=== PATIENT | female | born 1945 | race Caucasian/White ===

== ENCOUNTER 2019-07-14 17:45 | Inpatient (IN) | payer OTHER ==
[~2019-07-14] VITALS: Ht 162.6 cm; Wt 77.1 kg
[2019-07-14 17:46] VITALS: BP 173/65
[2019-07-14 18:14] LABS: ABSOLUTE NEUTROPHILS 8.4 thou/uL (1.4-8.2); BASOPHILS 0.3 % (0.0-2.0); HEMATOCRIT 37.2 % (37.0-47.0); HEMOGLOBIN 12.5 gm/dL (12.0-15.0); LYMPHOCYTES 6.5 % (24.0-44.0); MCH 30.6 pg (26.0-34.0); MCHC 33.7 g/dL (28.0-37.0); MCV 90.9 fL (80.0-100.0); MONOCYTES 2.2 % (1.0-8.0); PLATELET COUNT 181 thou/uL (150-400); RBC 4.09 mil/uL (4.20-5.00); RDW 13.6 % (10.5-14.5); WBC 9.3 thou/uL (4.0-11.0)
[2019-07-14 18:20] LABS: ANION GAP 9 mmol/L (7-16); BUN 19 mg/dL (7-18); CALCIUM 10.1 mg/dL (8.5-10.1); CHLORIDE 97 mmol/L (98-107); CO2 30 mmol/L (21-32); CREATININE 1.2 mg/dL (0.6-1.0); GLUCOSE 315 mg/dL (74-106); POTASSIUM 3.3 mmol/L (3.5-5.1); SODIUM 136 mmol/L (136-145)
[2019-07-14 18:26] LABS: ALBUMIN 3.7 g/dL (3.4-5.0); DIRECT BILIRUBIN < 0.1 mg/dL (<0.1-0.3); SGOT 16 U/L (15-37); SGPT 11 U/L (30-65); TOTAL BILIRUBIN 0.3 mg/dL (<0.1-1.0); TOTAL PROTEIN 8.1 g/dL (6.4-8.2)
[2019-07-14 20:30] LABS: URINE BILIRUBIN 1+ (Negative); URINE BLOOD 2+ (Negative); URINE CLARITY CLEAR; URINE COLOR YELLOW; URINE GLUCOSE-RANDOM* 2+ (Negative); URINE KETONES 1+ (Negative); URINE LEUKOCYTES-REFLEX NEGATIVE (Negative); URINE NITRITE-REFLEX NEGATIVE (Negative); URINE PROTEIN (DIPSTICK) 2+ (Negative); URINE UROBILINOGEN 0.2 E.U./dl (0.2-1.0)
[2019-07-14 20:39] LABS: BACTERIA-REFLEX 1-9 Few /HPF (None Seen); SQUAMOUS 0-3 Few /LPF (0-3); URINE RBC 3-10 Few /HPF (0-2); URINE WBC-REFLEX 0-5 Rare /HPF (0-5)
[2019-07-14 20:40] LABS: CRYSTALS None Seen /LPF (None Seen); HYALINE CASTS 0-3 Few /LPF (None Seen); MUCUS 0-3 Light strn/LPF (None Seen)
[2019-07-14 21:33] VITALS: BP 167/70
--- NOTE | 2019-07-14 21:54 | NUR ---
GAVE REPORT TO QAMAR RN FOR ROOM 429
[2019-07-14 22:02] VITALS: BP 164/48
[2019-07-14 22:30] VITALS: BP 176/75
--- NOTE | 2019-07-15 02:33 | NUR ---
PT ARRIVED ON THE UNIT @2230 FROM ER WITH C/O OF N/V, DENIES PAIN. IV INTACT ON RIGHT HAND AND NS INFUSING. ADM DOCUMENTED AND PT ORIENTED TO THE ROOM. ZOFRAN GIVEN FOR NAUSEA NO EFFECT. FALL PREC IN PLACE AND CALL LIGHT WITHIN REACH WILL CONTINUE POS TILL EOS.
[2019-07-15 04:15] VITALS: BP 170/78
[2019-07-15 08:29] VITALS: BP 185/88
[2019-07-15 08:31] VITALS: BP 135/46
--- NOTE | 2019-07-15 14:09 | NUR ---
PT ADMITTED RELATED TO N/V DIARRHEA. CM REVIEWED CHART AND SPOKE WITH CARE TEAM. CM MET WITH PT AT BEDSIDE THIS DAY. PT IS A&O X4. CM ROLE INTRODUCED. PT INDICATED SHE LIVES ALONE IN A HUD APARTMENT WITH ELEVATOR ACCESS. 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 PT INDICATED NO DME OR HH HX. PT INDICATED SHE PLANS TO RETURN HOME ONCE MEDICALLY STABLE. CM TO FOLLOW INDICATED WITH DC PLANNING.
--- NOTE | 2019-07-15 19:54 | NUR ---
ASSUMED CARE OF PATIENT AT 0715, PATIENT ALERT AND ORIENTED X 4. PATIENT UP WITH SBA TO BATHROOM. PATIENT IS A FALL RISK, FALL PRECAUTIONS IN PLACE. PATIENT INSTRUCTED TO CALL FOR ASSISTANCE. PATIENT HAD RIGHT HAND AND AND RIGHT AC IV IN PLACEM BOTH WENT BAD, IV TEAM PLACE RIGHT FOREARM IV WITH NS AT 125CC/HR. NEW STOOL SAMPLE FOR C-DIFF PER THERESA/INFEC. NURSE. PATIENT HAS HAD NAUSEA OF AND ON MOST OF THE DAY. ULTRASOUND DONE THIS AM, ADRENAL MASS FOUND, WILL CONTINUE TO MONITOR.
[2019-07-15 21:02] VITALS: BP 172/62
[2019-07-16 04:33] VITALS: BP 165/70
--- NOTE | 2019-07-16 06:40 | NUR ---
ASSUMED PT CARE 1899. PT ALERT AND ORIENTED, REASSESSENT COMPLETE. VSS. GURJIT PAIN, REPORTS N/V, SEE EMAR. CALL LIGHT AND PERSONAL BEWLONINGS WITHIN [facility], WILL CONTINUE POC UNITL OES.
[2019-07-16 10:43] VITALS: BP 173/81
[2019-07-16 21:21] VITALS: BP 168/66
[2019-07-17] VITALS (11 sets, daily range): BP systolic 127–1134; BP diastolic 67–96
[2019-07-17 01:06] LABS: GLYCOHEMOGLOBIN (HGB A1C) 6.6 % (4.8-5.6)
--- NOTE | 2019-07-17 16:57 | NUR ---
CRANBERRY BOG SUPERVISOR initiated. See flowsheet
[2019-07-17 17:32] LABS: CALCIUM 8.5 mg/dL (8.5-10.1); CREATININE 0.9 mg/dL (0.6-1.0); MAGNESIUM 1.2 mg/dL (1.8-2.4); TOTAL BILIRUBIN 0.8 mg/dL (<0.1-1.0); TOTAL PROTEIN 6.8 g/dL (6.4-8.2); TROPONIN-I 0.18 ng/mL (<0.06)
[2019-07-17 17:36] LABS: POTASSIUM 2.6 mmol/L (3.5-5.1)
--- NOTE | 2019-07-17 19:50 | NUR ---
pt transfered from for high HR, PT is A&OX3, pt has starts diltiazem 10mg iv bolus and 10mg -15mg /hr iv drips, pt's HR has improved 100-120, RN has called dr for k 2.6, mag 1.2, new order received, pt's vs and o2sat are stable, RN has reported to next shift to keep eye on pt.
--- NOTE | 2019-07-17 20:56 | NUR ---
PATIENT ALERT AND ORIENTED WITH NAUSEA BUT NO EMESIS TODAY. PATIENT CONCERNED AND TEARFUL ABOUT THE POSSIBILITY OF CANCER. PATIENT TRANSFERRED FROM 4E TO 3W DUE TO AFIB WITH RVR. DAUGHTER AT BEDSIDE AND AWARE OF PATIENT'S PLAN OF CARE. PATIENT HAD CT DONE TODAY. PATIENT STATES WOULD RATHER THAN HAVE CANCER.
[2019-07-18] VITALS (12 sets, daily range): BP systolic 94–149; BP diastolic 52–85
--- NOTE | 2019-07-18 03:54 | NUR ---
Patient making slow progress towards outcome goals. Rhythm remains in Afib rate low 100's with occasional HR up to 140's with activity. Blood pressure stable. Cardizem drip infusing at 10 mg/HR. IVFluids infusing. Poor appetite, nausea relieved with compazine. Generalized abdominal disconfort relieved with Morphine. High fall risks, fall precautions in place. No change in edema. Slow diuresing.
[2019-07-18 05:30] LABS: CALCIUM 8.3 mg/dL (8.5-10.1); CREATININE 0.8 mg/dL (0.6-1.0); MAGNESIUM 1.1 mg/dL (1.8-2.4)
[2019-07-18 05:34] LABS: POTASSIUM 2.9 mmol/L (3.5-5.1)
--- NOTE | 2019-07-18 18:44 | NUR ---
pt is A&OX 3,pt denies pain and n/v today, pt starts DM diet, pt's hr has improved,pt's diltiazem iv drip has d/c at 1200pm as order, but pt's HR starts up to 150 , RN has called dr and new order : restart diltiazem iv drip 10mg/hr , recheck BMP and MAG at 2100 today after replacement today. RN will report to next shift to keep eye on pt.
[2019-07-18] MEDS ORDERED: ZOLOFT50 MG PO (20:48)
[2019-07-18 21:20] LABS: MAGNESIUM 1.6 mg/dL (1.8-2.4); POTASSIUM 3.1 mmol/L (3.5-5.1)
--- NOTE | 2019-07-19 03:01 | NUR ---
DURING 2099 MED PASS, PT STATES SHE DOES NOT LIKE THE POTASSIUM PILLS. NOW PT HAS K+ POWDER, PT STATES SHE DOES NOT LIKE THE TASTE, SO I MIXED IT WITH DIET SPRITE. PT HEART RATES RUNNING 90-105 BPM, AND AFIB IS STILL PRESENT. CARD DRIP HAS NOT BEEN RESTARTED. WILL CONTINUE TO MONITOR AND ASSESS. CALL LIGHT WITHIN REACH. PT UPTO BSC X1 ASSIST. HOURLY ROUNDING.
[2019-07-19 03:09] VITALS: BP 141/85
[2019-07-19 05:08] LABS: HEMATOCRIT 32.7 % (37.0-47.0); HEMOGLOBIN 10.9 gm/dL (12.0-15.0); MCH 30.7 pg (26.0-34.0); MCHC 33.2 g/dL (28.0-37.0); MCV 92.6 fL (80.0-100.0); RBC 3.54 mil/uL (4.20-5.00); RDW 13.9 % (10.5-14.5); WBC 6.9 thou/uL (4.0-11.0)
[2019-07-19 05:19] LABS: CALCIUM 8.2 mg/dL (8.5-10.1); CREATININE 0.8 mg/dL (0.6-1.0); MAGNESIUM 1.7 mg/dL (1.8-2.4)
[2019-07-19 05:36] LABS: POTASSIUM 2.9 mmol/L (3.5-5.1)
[2019-07-19 08:01] VITALS: BP 159/70
[2019-07-19 11:49] VITALS: BP 149/71
[2019-07-19 15:28] VITALS: BP 155/79
[2019-07-19 19:33] VITALS: BP 154/63
--- NOTE | 2019-07-19 22:03 | NUR ---
DURING ASSESSMENT PT HAS COMPLAINTS OF NAUSEA AND SOME PAIN. IV PAIN MEDICATION GIVEN AND SUPPOSITORY GIVEN FOR NAUSEA. TITRATED CARD DRIP TO 10MG. WILL CONTINUE TO MONITOR AND ASSESS.
[2019-07-19 22:31] VITALS: BP 154/63
[2019-07-20 04:00] VITALS: BP 176/76
[2019-07-20 05:33] LABS: HEMATOCRIT 33.6 % (37.0-47.0); HEMOGLOBIN 11.2 gm/dL (12.0-15.0); MCH 30.6 pg (26.0-34.0); MCHC 33.3 g/dL (28.0-37.0); MCV 91.8 fL (80.0-100.0); RBC 3.66 mil/uL (4.20-5.00); RDW 13.9 % (10.5-14.5)
[2019-07-20 05:52] LABS: CALCIUM 8.7 mg/dL (8.5-10.1); CREATININE 0.8 mg/dL (0.6-1.0); MAGNESIUM 1.7 mg/dL (1.8-2.4); POTASSIUM 3.4 mmol/L (3.5-5.1)
[2019-07-20 07:55] VITALS: BP 158/84
[2019-07-20 11:13] VITALS: BP 143/75
[2019-07-20 15:26] VITALS: BP 119/66
[2019-07-20 15:30] LABS: MAGNESIUM 1.6 mg/dL (1.8-2.4); POTASSIUM 3.5 mmol/L (3.5-5.1)
--- NOTE | 2019-07-20 16:42 | NUR ---
ASSUMED CARE OF PATIENT AT 0700. PATIENT CARDIZEM DRIPPED STOPPED AFTER ADDED CARDIZEM PO STARTED. PATIENT HAS BEEN DOING WELL WITHOUT THE DRIP WITH HEART RATES IN THE 80S AND STABLE BP'S. PATIENT EXPERIENCED LESS NAUSEA THAN PREVIOUSLY BUT STILL EXPERIENCED SOME HEADACHE AND BACK PAIN THAT WAS MANAGED WITH MORPHINE.
[2019-07-20 19:13] VITALS: BP 146/67
[2019-07-21 01:13] LABS: MAGNESIUM 1.6 mg/dL (1.8-2.4); POTASSIUM 3.8 mmol/L (3.5-5.1)
--- NOTE | 2019-07-21 03:22 | NUR ---
ASSUMED CARE OF PATIENT AT 1900. VSS, AFEBRILE. UP TO THE COMMODE TO VOID. C/O NAUSEA 1 TIME. RELIEVED BY ORAL ZOFRAN. PAIN MEDICINE GIVEN WELL, RELIEF OBTAINED. REMAINS A FIB ON THE MONITOR. NO S/S OF DISTRESS. PROGRESSING TOWARDS POC GOALS
[2019-07-21 03:28] VITALS: BP 151/88
[2019-07-21 07:12] VITALS: BP 151/79
--- NOTE | 2019-07-21 07:44 | EKG ---
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 Analyst: Toi WATKINS : 1945 Requested By: Basilio Jenkins Order Number: [id number] MD: Diego Rios Measurements Intervals Odin Rate: 149 P: MI: QRS: 57 QRSD: 91 T: -47 QT: 295 QTc: 465 Interpretive Statements Atrial fibrillation with rapid V-rate Repolarization abnormality, prob rate related No previous ECG available for comparison Electronically Signed On 07-21-2019 7:43:50 CDT by Diego Rios [email or web address] ��������������������������������������������� <ELECTRONICALLY SIGNED> ���������������������������������������� By: Diego Rios MD, [facility] ��������������������������������������������� 07/21/19 0743 [id number] Diego Rios MD, [facility] /EPI
--- NOTE | 2019-07-21 09:35 | NUR ---
Nutrition: Pt seen for LOS. Admitted: N/V, epigastric abdominal pain. Note new cardiology consult for recently identified a fib. Other hx: DM, GERD, tobacco abuse, HTN. After RD introduction, pt states "I don't want to be on a diet." Explained purpose of visit was to inquire on nutrition concerns, be of help. Pt has been on carb controlled diet since 07/18 (on clear liquids 2 days prior). 70% meal average x last 3 days. Pt is trying her best, denies any additional nutrition intervention needs. Educated on dry, bland, starchy foods if nausea continues. Also spoke on protein importance given longer hospital stay. On magnesium oxide BID for low mag levels; up to 1.7 mg/dl per 07/21. Pt states "I just want peace." D/t lack of voiced nutrition concerns and sufficient meal average, deemed low nutrition risk.
[2019-07-21 11:38] VITALS: BP 152/74
--- NOTE | 2019-07-21 13:36 | NUR ---
dp let Stanley/Denis Gibson know that patient will dc tomorrow to [facility].
--- NOTE | 2019-07-21 13:59 | NUR ---
SW reviewed chart and spoke with nursing. 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 Cardiology consulted today due to a-fib. Pt is back on [facility]. Plan is for pt to discharge home when medically stable. BARBARA is following to assist as needed with discharge planning.
--- NOTE | 2019-07-21 14:06 | PATH ---
[facility] [address] PATHOLOGY RPT PROCEDURE Name: DOROTHY RUIZ Room #: 350-P ADM IN M.R.#: [id number] ������������������ Admission: 07/14/19 ������������������ Date of : 45 Discharge: Report #: [id number] Path Case #: [id number] [facility] Accession Number: [id number] . 01 Material submitted: . PART A: duodenum - BIOPSY DUODENITIS PART B: duodenum - BIOPSY DUODENAL POLYPS PART C: stomach - RANDOM GASTRIC BIOPSY R/O H PYLORI . 01 Clinical history: . Pre-OP DX: Intractable nausea, vomiting, diarrhea Post-OP DX: Duodenitis, duodenal polyps, gastritis . 02 Diagnosis: A. Small bowel, duodenum, biopsy: - Duodenal mucosa with focal superficial ulceration and reactive atypia. - Mild to moderate chronic inflammation. . B. 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 - Focal superficial ulceration. - Moderate chronic inflammation. . (Please see comment) . C. Stomach, random biopsies: - Chronic superficial gastritis, mild. - No evidence of Helicobacter pylori on immunoperoxidase stain. . (MARINM:estrella; 07/17/2019) QLM/07/17/2019 . 02 Comment: Dr. Kathy Dsuoza has reviewed part "B" of this case and she agrees with the diagnosis. . . (SKM:estrella; 07/17/2019) . 02 Electronically signed: . Nato Nathan MD, Pathologist NPI- [id number] . 01 Gross description: . A. Received in formalin labeled "Dorothy Ruiz BX duodenitis," are 4 segments of pool soft tissue measuring 1.0 x 0.8 x 0.2 cm in aggregate dimensions and ranging from 0.2 to 0.4 cm [place] [address] PATHOLOGY RPT PROCEDURE Name: DOROTHY RUIZ Room #: 350-P [facility] IN [facility].#: [id number] ������������������ Admission: 07/14/19 ������������������ Date of : 45 Discharge: Report #: [id number] Path Case #: [id number] specimen is submitted entirely in cassette A1. . B. Received in formalin labeled "Dorothy Ruiz BX duodenal polyps," are 5 segments of pool soft tissue measuring 0.9 x 0.6 x 0.2 cm in aggregate dimensions and ranging from 0.2 to 0.3 cm in maximum dimension. The specimen is submitted entirely in cassette B1. . C. Received in formalin labeled "Dorothy Ruiz, random gastric BX, rule out H. pylori," are 6 segments of pool soft tissue measuring 1.3 x 0.9 x 0.3 cm in aggregate dimensions and ranging from 0.3 to 0.5 cm in maximum dimension. The specimen is submitted entirely in cassette C1. (TSD; 07/16/2019) TOB/TOB . 02 Pathologist provided ICD-10: K26.9, K29.80, K31.89, K29.50 . 02 CPT . 551854, 182752, 116189 Specimen Comment: A courtesy copy of this report has been sent to Specimen Comment: [phone], . Specimen Comment: Report sent to and Performed at: [address], [place] [id number] MD Zev Fung MD Phone: [phone] Performed at: [facility] [address] [place], [place] [id number] MD Kathy Dsouza MD Phone: [phone]
--- NOTE | 2019-07-21 15:05 | 2DMMODE ---
[facility] [address] [place] [address] 2 D/M-MODE ECHOCARDIOGRAM Name: RODRIGUEZ RUIZ Room #: 350-P ADM IN M.R.#: [id number] ������������� Admission: 07/14/19 ������������� Attend Phys: Basilio Jenkins, Discharge: ��� ������������� ��� Date of : 45 Date of Service: 07/21/19 1504 �� Report #: [id number] �������� ��������������������������������������������[id number] THIS REPORT FOR: //name// APPROVED REPORT Study performed: 07/21/2019 13:21:09 EXAM: Comprehensive 2D, Doppler, and color-flow Echocardiogram Patient Location: Bedside Room #: 350 Status: routine BSA: 1.83 HR: 78 bpm BP: 151/79 mmHg Rhythm: Atrial Fibrillation Other Information Study Quality: Adequate Risk Factors: Cardiac Risk Factors: HTN, DM, Smoking Indications Atrial Fibrillation Hypertension/HDD 2D Dimensions IVSd: 12.84 (7-11mm) LVOT Diam: 20.00 (18-24mm) LVDd: 48.72 mm PWd: 12.06 (7-11mm) Ascending Ao: 31.19 (22-36mm) LVDs: 31.49 (25-40mm) Aortic Root: 30.60 mm LV Single Plane 4CH: 72.13 % LV Single Plane 2CH: 68.46 % Biplane EF: 69.5 % Volumes Left Atrial Volume (Systole) Single Plane 4CH: 72.56 mL Single Plane 2CH: 75.41 mL LA ESV Index: 44.00 mL/m2 Aortic Valve AoV Peak Dustin.: 1.47 m/s AO Peak Gr.: 10.05 mmHg LVOT Max P.82 mmHg LVOT Max V: 0.97 m/s [facility] [place] [address] [place] [address] 2 D/M-MODE ECHOCARDIOGRAM Name: RODRIGUEZ RUIZ Room #: [address] [place] [address] [place] ..#: [id number] ������������� Admission: 07/14/19 ������������� Attend Phys: Basilio Jenkins, Discharge: ��� ������������� ��� Date of : 45 Date of Service: 07/21/19 1504 �� Report #: [id number] �������� ��������������������������������������������[id number] HARSHA Vmax: 2.14 cm2 Pulmonary Valve PV Peak Dustin.: 0.97 m/s PV Peak Gr.: 3.79 mmHg Tricuspid Valve TR Peak Dustin.: 2.43 m/s RAP Estimate: 10.00 mmHg TR Peak Gr.: 23.73 mmHg PA Pressure: 34.00 mmHg Left Ventricle The left ventricle is normal size. There is normal LV segmental wall motion. Mild concentric left ventricular hypertrophy. The left ventricular systolic function is normal. The left ventricular ejection fraction is within the normal range. LVEF is 65-70%. This study is not technically sufficient to allow evaluation of the LV diastolic function due to atrial fibrillation. Right Ventricle Right ventricle is mildly dilated. The right ventricular systolic function is normal. Atria Left atrium is moderately dilated. The right atrium size is normal. Aortic Valve The Aortic valve is sclerotic. No aortic regurgitation is present. There is no aortic valvular stenosis. Mitral Valve There is mitral annular calcification. Moderate mitral regurgitation. No evidence of mitral valve stenosis. Tricuspid Valve The tricuspid valve is normal in structure. Moderate tricuspid regurgitation. Pulmonary artery pressure is 34 mmHg. Pulmonic Valve The pulmonary valve is normal in structure. Mild pulmonic regurgitation. Great Vessels The aortic root is normal in size. The ascending aorta is normal in size. IVC is dilated and collapses >50% with inspiration. [facility] [address] [place] [address] 2 D/M-MODE ECHOCARDIOGRAM Name: RODRIGUEZ RUIZ Room #: 350-P [facility] IN M.R.#: [id number] ������������� Admission: 07/14/19 ������������� Attend Phys: Basilio Jenkins, Discharge: ��� ������������� ��� Date of : 45 Date of Service: 07/21/19 1504 �� Report #: [id number] �������� ��������������������������������������������[id number] Pericardium There is no pericardial effusion. <Conclusion> The left ventricle is normal size. LVEF is 65-70%. This study is not technically sufficient to allow evaluation of the LV diastolic function due to atrial fibrillation. Right ventricle is mildly dilated. Left atrium is moderately dilated. The Aortic valve is sclerotic. There is no aortic valvular stenosis. Moderate mitral regurgitation. Moderate tricuspid regurgitation. Pulmonary artery pressure is 34 mmHg. The aortic root is normal in size. There is no pericardial effusion. ��������������������������������������������� <ELECTRONICALLY SIGNED> ���������������������������������������� By: Nacho Arvizu MD, FACC ��������������������������������������������� 07/21/19 1504 1504 1504 Nacho Arvizu MD, FACC /INF
[2019-07-21 15:18] VITALS: BP 112/67; BP 127/67
--- NOTE | 2019-07-21 18:16 | NUR ---
CARDIOLOGY SAW PATIENT TODAY AND STARTED ON NEW TREATMENT. HR HAS SIGNIFICANLTY IMPROVED RANGING FROM 60-80HB/M. PATIENT IS ALERT ORIENTED X4. DOES APPEAR ANXIOUS AT TIMES WHEN SHE DISCUSSES WHAT IS NEXT FOR HER. STATES SHE IS TOO WEAK TO GO HOME BUT DOES NOT WANT TO GO TO REHAB SHE MISSES HER DOGS. SHE WANTS TO GO HOME AND BE WITH THEM. STATES A FRIEND IS TAKING CARE OF THEM. NURSE ATTEMPTED TO AMBULATE PATIENT ON HALLWAY BUT SHE ONLY WALKED A FEW STEPS AND STATED SHE CANNOT DO IT. STATES SHE IS TOO WEAK TO CONT. WILL DISCUSS WITH PHYSICIAN IF PATIENT NEEDS REHAB TO IMPROVE STRENGTH.
[2019-07-21 19:16] VITALS: BP 141/68
--- NOTE | 2019-07-22 03:42 | NUR ---
PT PROGRESSING TO DC GOALS. HR HAS REMAINED BELOW 100 BP. FOLLOWING POC WITH IVF. PT STATES NO N/V THIS EVENING, AND ONLY ISSUE WAS A HEADACHE WHICH SHE ATTRIBUTES TO NOT HAVING A NICOTINE PATCH. PT STATES NICOTINE PATCHES CAUSE HER TO HAVE NIGHTMARES AND NOT SLEEP WELL. PT WILL HAVE STRESS TEST IN OUTPATIENT SETTING. PT UPTO BSC. HOURLY ROUNDING.
[2019-07-22 03:45] VITALS: BP 158/85
[2019-07-22 07:32] VITALS: BP 141/81
--- NOTE | 2019-07-22 08:46 | EKG ---
[address] [place] [address] ELECTROCARDIOGRAM REPORT Name: RODRIGUEZ RUIZ Room #: 350- ADM IN M.R.#: [id number] ������������������ Admission: 07/14/19 ������������������ Attend Phys: Basilio Jenkins MD Discharge: ������������������ Date of : 45 Report #: [id number] ����������������������������������������������������������������� [id number] THIS REPORT FOR: //name// [facility] Test Date: 2019-07-22 Test Time: 07:54:23 Pat Name: RODRIGUEZ RUIZ Department: Room: 350 P Gender: F Inspector Bullet Slugs: KELLY : 1945 Requested By: Diego Rios Order Number: [id number] MD: Diego Rios Measurements Intervals Carlock Rate: 80 P: IN: QRS: 38 QRSD: 95 T: -15 QT: 395 QTc: 456 Interpretive Statements Atrial fibrillation Low voltage, precordial leads Nonspecific ST and T wave abnormality Compared to ECG 07/17/2019 16:32:40 Ventricular response has slowed Electronically Signed On 07-22-2019 8:45:43 CDT by Diego Rios [email or web address] ��������������������������������������������� <ELECTRONICALLY SIGNED> ���������������������������������������� By: Diego Rios MD, [facility] ��������������������������������������������� 07/22/19 0845 0754 0754 Diego Rios MD, [facility] /EPI
[2019-07-22 11:10] VITALS: BP 149/82
[2019-07-22 15:33] VITALS: BP 149/82
--- NOTE | 2019-07-22 16:05 | NUR ---
BARBARA reviewed chart and spoke with nursing and attending physician. Pt may discharge home later today. BARBARA met with pt at bedside to discuss discharge plan. Therapy recommending HH and straight cane for home use. Pt agreeable with HH and cane. Pt does not want to go anywhere for rehab. Options provided for HH agencies and [facility]. BARBARA confirmed pt's home address and phone number. No preference voiced. BARBARA notified [facility] liaison, who delivered pt's cane to her room. BARBARA faxed referral to [facility] and notified Nov liaison. Contact info for both [facility] and [facility] placed in pt's discharge summary. Awaiting final discharge orders/summary. Will need to be faxed to [facility] when available. BARBARA is following to finalize discharge. [facility]--
[2019-07-22 16:24] VITALS: BP 145/65
[2019-07-22] MEDS ORDERED: ATENOLOL 50MG T50 M1 PO (17:49)
[2019-07-22] MEDS ORDERED: CARDIZEM CD120 MG PO (17:49)
[2019-07-22] MEDS ORDERED: PANTOPRAZOLE SO40 M1 PO (17:50)
[2019-07-22] MEDS ORDERED: BENAZEPRIL HCL20 MG PO (17:50)
[2019-07-22] MEDS ORDERED: XARELTO20 MG PO (18:17)
[2019-07-22] MEDS ORDERED: PRINIVIL20 MG PO (18:18)
[2019-07-22 18:19] VITALS: BP 149/82
--- NOTE | 2019-07-22 18:47 | NUR ---
DISCHARGE INSTRUCTIONS REVIEWED WITH PT. QUESTIONS ANSWERED. PT STATES HER DAUGHTER WILL COME AFTER WORK TO GET HER BUT SHE HAS NO IDEA WHEN THAT IS. [facility] CALLED IN PER DR MARTINEZ. PIV AND TELE WERE DC'D
--- NOTE | 2019-07-22 18:56 | NUR ---
PT LEFT VIA WHEELCHAIR WITH DAUGHTER
--- NOTE | 2019-07-24 08:31 | NUR ---
SW faxed finalized discharge orders/summary to [facility] yesterday, 07/23 and confirmed info was received with liaison. No additional SW needs identified at this time. Case closed.
== END 2019-07-22 18:57 | disposition home health service (06) | DRG 383 ==
LOC: ER 17:45 → 3W 21:01 → 4E 21:01 → EROBS 21:01 → 4E 22:19 → 3W 07-17 16:55
PROVIDERS: Emergency Medicine; Internal Medicine Gastroenterology; ADMIT Family Medicine
PROC: 0DB78ZX Excision of Stomach, Pylorus, Via Natural or Artificial Opening Endoscopic, Diagnostic (ICD-10-PCS; principal; 2019-07-16)
PROC: 0DB98ZX Excision of Duodenum, Via Natural or Artificial Opening Endoscopic, Diagnostic (ICD-10-PCS; 2019-07-16)
DX: K26.9 Duodenal ulcer, unspecified as acute or chronic, without hemorrhage or perforation (principal); N17.0 Acute kidney failure with tubular necrosis; D68.59 Other primary thrombophilia; K29.70 Gastritis, unspecified, without bleeding; K29.80 Duodenitis without bleeding; K21.9 Gastro-esophageal reflux disease without esophagitis; E87.6 Hypokalemia; E11.9 Type 2 diabetes mellitus without complications; I10 Essential (primary) hypertension; E78.00 Pure hypercholesterolemia, unspecified; F17.210 Nicotine dependence, cigarettes, uncomplicated; E27.8 Other specified disorders of adrenal gland; K31.7 Polyp of stomach and duodenum; E83.42 Hypomagnesemia; I48.91 Unspecified atrial fibrillation; Z53.29 Procedure and treatment not carried out because of patient's decision for other reasons; I65.29 Occlusion and stenosis of unspecified carotid artery; Z82.49 Family history of ischemic heart disease and other diseases of the circulatory system
CPT/HCPCS: 10084; 10183; 10779; 10879; 62110; 62900; 70005

== ENCOUNTER 2019-07-24 15:13 | Inpatient (IN) | payer OTHER ==
[~2019-07-24] VITALS: Ht 162.6 cm; Wt 78.7 kg
[~2019-07-24 15:13] MED LIST: ATENOLOL 50MG T50 M1 PO; BENAZEPRIL HCL20 MG PO; CARDIZEM CD120 MG PO; PANTOPRAZOLE SO40 M1 PO; PRINIVIL20 MG PO; XARELTO20 MG PO; ZOLOFT50 MG PO
[2019-07-24 15:14] VITALS: BP 132/92
[2019-07-24 15:33] LABS: ABSOLUTE NEUTROPHILS 8.5 thou/uL (1.4-8.2); BASOPHILS 0.5 % (0.0-2.0); EOSINOPHILS 0.1 % (0.0-3.0); HEMATOCRIT 35.4 % (37.0-47.0); HEMOGLOBIN 11.6 gm/dL (12.0-15.0); LYMPHOCYTES 9.2 % (24.0-44.0); MCH 30.5 pg (26.0-34.0); MCHC 32.7 g/dL (28.0-37.0); MONOCYTES 2.8 % (1.0-8.0); PLATELET COUNT 284 thou/uL (150-400); POLYS 87.4 % (36.0-66.0); RDW 13.9 % (10.5-14.5); WBC 9.7 thou/uL (4.0-11.0)
--- NOTE | 2019-07-24 15:33 | EKG ---
[place] [address] [address] 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: [facility] : 1945 Requested By: Vane Cruz Order Number: [id number] MD: Diego Rios Measurements Intervals Ovalo Rate: 129 P: NH: QRS: 42 QRSD: 89 T: -13 QT: 321 QTc: 471 Interpretive Statements Atrial fibrillation Low voltage, precordial leads Nonspecific ST and T wave abnormality Compared to ECG 07/22/2019 07:54:23 Heart rate has increased Electronically Signed On 07-24-2019 15:33:37 CDT by Diego Rios [email or web address] ��������������������������������������������� <ELECTRONICALLY SIGNED> ���������������������������������������� By: Diego Rios MD, [facility] ��������������������������������������������� 07/24/19 1533 1526 1526 Diego Rios MD, [facility] /EPI
[2019-07-24 15:40] LABS: ANION GAP 6 mmol/L (7-16); BUN 12 mg/dL (7-18); CALCIUM 9.8 mg/dL (8.5-10.1); CHLORIDE 101 mmol/L (98-107); CO2 31 mmol/L (21-32); CREATININE 1.1 mg/dL (0.6-1.0); GLUCOSE 341 mg/dL (74-106); POTASSIUM 3.7 mmol/L (3.5-5.1); SODIUM 138 mmol/L (136-145)
[2019-07-24 15:51] LABS: LIPASE 174 U/L (73-393); SGOT 7 U/L (15-37); SGPT 14 U/L (30-65); TOTAL BILIRUBIN 0.3 mg/dL (<0.1-1.0); TOTAL PROTEIN 7.3 g/dL (6.4-8.2); TROPONIN-I <0.06 ng/mL (<0.06)
[2019-07-24 16:00] LABS: URINE BILIRUBIN NEGATIVE (Negative); URINE BLOOD TRACE (Negative); URINE CLARITY CLOUDY; URINE COLOR YELLOW; URINE GLUCOSE-RANDOM* 3+ (Negative); URINE KETONES NEGATIVE (Negative); URINE LEUKOCYTES-REFLEX TRACE (Negative); URINE NITRITE-REFLEX NEGATIVE (Negative); URINE PROTEIN (DIPSTICK) 1+ (Negative); URINE UROBILINOGEN 0.2 E.U./dl (0.2-1.0)
[2019-07-24 16:08] LABS: SQUAMOUS 0-3 Few /LPF (0-3)
[2019-07-24 16:09] LABS: AMORPHOUS URATES Few /LPF (None Seen); BACTERIA-REFLEX 1-9 Few /HPF (None Seen); CASTS None Seen /LPF (None Seen); URINE RBC 0-2 Rare /HPF (0-2); URINE WBC-REFLEX 0-5 Rare /HPF (0-5)
[2019-07-24 16:45] VITALS: BP 159/85
[2019-07-24 17:19] VITALS: BP 159/85
[2019-07-24 17:54] VITALS: BP 152/78
--- NOTE | 2019-07-24 18:20 | NUR ---
PT TO THE UNI9T FROM THE EMERGENCY ROOM. ORIENTED TO BED SPACE. ASSESSMENT CHARTED - VIVIANAZEN INFUSING - PT IN AFIB RATE NOW IN THE 80'S. UNABLE TO RECONCILE MEDS PATIENT STATES SHE DOES NOT KNOW WHAT MEDS SHE TAKES - I ASKED HOW SHE MANAGED THIS AT HOME AND SHE STATED I WAS ASKING TOO MANY QUESTIONS. SHE DOES NOT HAVE LIST WITH HER. PATIENT STATED THAT SHE QUIT SMOKING THE LAST TIME SHE WAS IN HERE THIS PAST WEEK. PT LOOKING A LITTLE UNKEMPT WHEN SHE WAS ADMITTED - SMELLED LIKE URINE AND HAD FEACES ON BOTTOM - PT CLEAN UP. PT RESTING IN BED AT THE PRESENT TIME.
[2019-07-24 20:00] VITALS: BP 146/81
[2019-07-25 04:45] VITALS: BP 116/76
[2019-07-25 08:00] VITALS: BP 121/56
--- NOTE | 2019-07-25 08:34 | NUR ---
ASSUME CARE 1900. PT/VITALS STABLE. DENEIS ANY PAIN. UP AITH ASSIStANCE. ASSESSMENT CHARTED. PROGRESSING WITH POC.,ADDEQUATE REST NOTED THROUGH THE NIGHT. NO FURTHER CONCERNS NOTED. PLAN IS TO CONTINUE CARDIZEM DRIP AND TITRATE PER HR AND BLOOD PRESSURE. WILL CONTINUE TO MONITOR AND FOLLOW WIHT POC
[2019-07-25 12:00] VITALS: BP 108/51
[2019-07-25 16:00] VITALS: BP 118/66
--- NOTE | 2019-07-25 18:18 | NUR ---
ASSESSMENT CHARTED - MEDS PER MAR - PT GIVEN IMODIOUM THIS AM FOR DIARRHEA X 3 WITH GOOD RELIEF NO FIRTHER STOOLS - PT WITH CO'S OF NASUEA THIS EVENING - GIVEN ZOFRAN WITH MIN EFFECT PT STATES SHE REAIN NAUSEATED. GIVEN PROTONIX - AND 7 UP WITH MIN EFFECT - WILL CONT TO MONITOR, IV FLUIDS CONT ORDERED. PT UP TO THE BATHROOM WITH MIN- STBY ASSIST. IISAH DIET AND FLUIDS PRIOR TO EVENING BOUT OF NAUSEA. ACCUCHECKS CHARTED AND COVERED PER SSI. SEEN BY PHYS AND OCC THERAPY THIS SHIFT.
[2019-07-25 19:20] VITALS: BP 155/84
[2019-07-25 21:35] LABS: CALCIUM 8.8 mg/dL (8.5-10.1); MAGNESIUM 1.5 mg/dL (1.8-2.4); POTASSIUM 3.4 mmol/L (3.5-5.1)
[2019-07-26] VITALS (7 sets, daily range): BP systolic 128–158; BP diastolic 69–98
--- NOTE | 2019-07-26 04:53 | NUR ---
ASSUME CARE 1900. PT STABLE. DENIES ANY CHEST PAIN BUT COMPLAINS OF ANXIETY. HR IS 130s AND 140s AND STILL ON AFIB. DR MARTINEZ CALLED AND CARDIZEM DRIP RESTARTED. PT PLACED ON ELECTROLYTE PROTOCOL DUE TO LOW K/MG. TOLERATES ACTIVITY WELL. CALLS APPROPRIAELY/NO FURTHER DISTRESS NOTED AFTER DRIP STARTED. ASSESSMENT CHARTED. PROGRESSING MODERATELY WTH POC. PLAN IS TO CONTINUE MEDICAL MANAGEMENT FOR AFIB. WILL CONTINUE TO MONITOR AND FOLLOW WITH POC
[2019-07-27 04:21] VITALS: BP 148/72
--- NOTE | 2019-07-27 05:03 | NUR ---
ASSUMED PT CARE AT 1900 WITH NO SIGN OF DISTRESS NOTED. PT IS ALERT AND ORIENTED. NO FAMILY BEDSIDE. VITAL SIGNS STABLE. PT IS COMPLAINING OF NAUSEA, MED ADMINISTERED. ASSESSMENT COMPLETED AND CHARTED. SCHEDULED MEDS ADMINISTERED TO PT. NO VOMITING. PT IS STABLE. DENIES ANY FURTHER NEEDS AT THIS TIME.
[2019-07-27 08:25] VITALS: BP 152/99
[2019-07-27 12:05] VITALS: BP 144/74
--- NOTE | 2019-07-27 16:06 | NUR ---
patient recent dc from [facility] to home with [facility] care and a new cane issued. Patient resides in independent HUD apt with elevator. She reports independent with adls. She feels weak this admission and interested in post acute care at dc. Gave patient [facility] contracted facility list to review. She reports Dr Jenkins mentioned [facility]. Requested [facility] review her insurance if any out of network benefits.
[2019-07-27 16:10] VITALS: BP 134/61
--- NOTE | 2019-07-27 19:37 | NUR ---
ASSUMED CARE AT SHIFT CHANGE, ALERT AND ORIENTED X4. REMAINS ON CARDIZEM GTT AT 5MG/HR. AFIB ON THE MONTOR AND VSS. DENIES ANY DISCOMFORT AND WILL CONTINUE WITH PPOC.
[2019-07-27 20:16] VITALS: BP 119/56
--- NOTE | 2019-07-28 04:31 | NUR ---
ASSUMED PT CARE AT 1900 WITH NO SIGN OF DISTRESS NOTED IN PT. PT IS ALERT AND ORIENTED. DENIES ANY NEED. ASSESSMENT COMPLETED AND DOCUMENTED. SCHEDULED MEDS ADMINISTERED. PT COMPLAINED OF NAUSEA. MEDS ADMINISTERED. PT IS STABLE. VITAL SIGNS STABLE. DENIES ANY FURTHER NEEDS AT THIS TIME
[2019-07-28 04:50] VITALS: BP 143/65
[2019-07-28 08:15] VITALS: BP 155/79
--- NOTE | 2019-07-28 10:42 | NUR ---
spoke with [facility] no out of network benefits. Patient reviewed [facility] list and requests referral to [facility]. [facility] rec ref and reviewing.
[2019-07-28 12:10] VITALS: BP 141/87
--- NOTE | 2019-07-28 12:57 | NUR ---
SPOKE WITH [facility] WHO REPORTS THEY CANNOT ACCEPT PATIENT. DISCUSSED WITH PATIENT, [facility]ERRAL [facility].
--- NOTE | 2019-07-28 14:13 | NUR ---
FAXED REFERRAL TO [facility] SPOKE WITH KIM IN ADM SHE RECEIVED REFERRAL AND CAN ACCEPT AND WILL SUBMIT FOR AUTH. DCP TO FOLLOW.
--- NOTE | 2019-07-28 19:26 | NUR ---
ASSUMED CARE AT SHIFT CHANGE, ALERT AND ORIENTED X4. VSS AND AFIB, CARDIZEM GTT D/CIED. AND WILL WITH POC. PLAN TO DISCHARGE PATIENT TO REHAB TOMORROW.
[2019-07-28 19:58] VITALS: BP 111/50
--- NOTE | 2019-07-29 03:37 | NUR ---
RECEIVED PT'S CARE AT 1910; PT. ON BED; AXO4; DURING ASSESSMENT NO C/O PAIN; HS MEDICATION GIVEN; EDUCATED ABOUT FALL PRECAUTIONS; EXPLAINED THE NEED OF BED ALARM; PT. UPSET; ST. HAS NEVER HAD THE ALARM BEFORE; REQUESTED NURSE TO LEAVE ROOM; ABLE TO REST THROUGH THE NIGHT WITH EYES CLOSED; ASSESSMENT CHARGED; FOLLOWING POC; MONITORING; WILL PASS ON REPORT.
[2019-07-29 04:45] VITALS: BP 158/84
[2019-07-29 05:56] LABS: CALCIUM 8.8 mg/dL (8.5-10.1); CREATININE 0.9 mg/dL (0.6-1.0); POTASSIUM 3.3 mmol/L (3.5-5.1)
[2019-07-29 07:41] VITALS: BP 137/71
[2019-07-29 08:12] VITALS: BP 137/71
--- NOTE | 2019-07-29 08:22 | EKG ---
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 : 1945 Requested By: Diego Rios Order Number: [id number] MD: Diego Rios Measurements Intervals [place] Rate: 89 P: [place]: QRS: 59 QRSD: 92 T: -8 QT: 388 QTc: 473 Interpretive Statements Atrial fibrillation Otherwise no significant abnormality Compared to ECG 07/24/2019 15:26:17 ST (T wave) deviation no longer present Electronically Signed On 07-29-2019 8:21:50 CDT by Diego Rios [email or web address] ��������������������������������������������� <ELECTRONICALLY SIGNED> ���������������������������������������� By: Diego Rios MD, MERGED WITH [facility] ��������������������������������������������� 07/29/19 0821 [id number] Diego Rios MD, MERGED WITH [facility] /EPI
[2019-07-29] MEDS ORDERED: LIPITOR40 MG PO (09:02)
[2019-07-29] MEDS ORDERED: SPIRONOLACTONE25 M1 PO (09:03)
--- NOTE | 2019-07-29 12:11 | NUR ---
PT DISCHARGING TODAY TO RESORT OF [facility] FAXED DC ORDERS/SUMMARY TO FACILITY SPOKE WITH KIM IN ADM SHE RECEIVED DC ORDERS AND ARRANGED TRANSPORTATION BY [facility] FOR 1400 TODAY. PT'S DTR (ROSALIND) NOTIFIED BY BARBARA. UNIT NOTIFIED AND CHART COPY PER US. RN TO CALL REPORT TO [phone].
--- NOTE | 2019-07-29 12:33 | NUR ---
ASSUMED CARE AT SHIFT CHANGE ALERT AND ORIENTED X4. DENIES ANY DISCOMFORT. ANXIOUS TO GET TO REHAB. VSS AND AFIB ON THE MONITOR. OTTONIEL SPOKE WITH PATIENT ABOUT TRANSFEREING TO REHAB AT 1400, AND WAITING FOR TRANSPORTATION.
== END 2019-07-29 13:50 | DRG 308 ==
LOC: ER 15:13 → EROBS 16:42 → 2N 16:42
PROVIDERS: Internal Medicine; Nurse Practitioner Family; ADMIT Family Medicine
DX: I48.91 Unspecified atrial fibrillation (principal); I50.23 Acute on chronic systolic (congestive) heart failure; N17.9 Acute kidney failure, unspecified; D68.59 Other primary thrombophilia; K29.70 Gastritis, unspecified, without bleeding; K29.80 Duodenitis without bleeding; E11.9 Type 2 diabetes mellitus without complications; E87.6 Hypokalemia; E27.9 Disorder of adrenal gland, unspecified; I11.0 Hypertensive heart disease with heart failure; I48.2 Chronic atrial fibrillation; E78.00 Pure hypercholesterolemia, unspecified; I50.814 Right heart failure due to left heart failure; K21.9 Gastro-esophageal reflux disease without esophagitis; Z87.891 Personal history of nicotine dependence; Z79.899 Other long term (current) drug therapy
CPT/HCPCS: 10081

== ENCOUNTER 2019-11-29 17:13 | Inpatient (IN) | payer OTHER ==
[~2019-11-29] VITALS: Ht 157.5 cm; Wt 61.7 kg
[2019-11-29] VITALS (11 sets, daily range): BP systolic 105–183; BP diastolic 46–103
[~2019-11-29 17:13] MED LIST changes: +LIPITOR40 MG PO; +SPIRONOLACTONE25 M1 PO
[2019-11-29 17:30] LABS: HEMATOCRIT 34.5 % (37.0-47.0); MCH 26.7 pg (26.0-34.0); MCHC 31.7 g/dL (28.0-37.0); MCV 84.3 fL (80.0-100.0); RDW 17.7 % (10.5-14.5); WBC 9.5 thou/uL (4.0-11.0)
[2019-11-29 17:41] LABS: CALCIUM 10.5 mg/dL (8.5-10.1); CREATININE 1.9 mg/dL (0.6-1.0); POTASSIUM 3.8 mmol/L (3.5-5.1)
[2019-11-29 17:51] LABS: ALBUMIN 2.7 g/dL (3.4-5.0); TOTAL BILIRUBIN 0.4 mg/dL (<0.1-1.0); TROPONIN-I 0.24 ng/mL (<0.06)
[2019-11-29 18:51] LABS: BE(vivo) 0.7 mmol/L (-2 to +3); HCO3 25.7 mmol/L (22.0-26.0); PCO2 42.5 mmHg (35.0-45.0); PO2 74.8 mmHg (80.0-100.0); pH 7.399 (7.360-7.450)
[2019-11-29 18:58] LABS: ABSOLUTE NEUTROPHILS 6.5 thou/uL (1.4-8.2)
[2019-11-29 18:59] LABS: ANISOCYTOSIS 1+
[2019-11-29 19:00] LABS: PLATELET COUNT 241 thou/uL (150-400)
--- NOTE | 2019-11-29 19:07 | EKG ---
[address] [place] [address] ELECTROCARDIOGRAM REPORT Name: ALCONRODRIGUEZ CRAWLEY RAHEL Room #: 170-6 ADM IN M.R.#: [id number] Admission: 11/29/19 Attend Phys: Basilio Jenkins MD Discharge: Date of : 45 Report #: [id number] THIS REPORT FOR: //name// [facility] Test Date: 2019-11-29 Test Time: 17:19:05 Pat Name: RODRIGUEZ RUIZ Department: Room: [facility] Gender: F Rn Lab: KAYLA : 1945 Requested By: Vane Cruz Order Number: [id number] MD: Booker Pruitt Measurements Intervals [place] Rate: 145 P: [place]: QRS: 91 QRSD: 96 T: -88 QT: 351 QTc: 546 Interpretive Statements Right and left arm electrode reversal, interpretation assumes no reversal Atrial flutter with varied AV block, Right axis deviation Repolarization abnormality, prob rate related Baseline wander in lead(s) II,III,aVR,aVF,V6 Electronically Signed On 11-29-2019 19:07:19 ANVIL WORKER by Booker Pruitt [email or web address] <ELECTRONICALLY SIGNED> By: Booker Pruitt MD 11/29/19 1907 1719 1719 Booker Pruitt MD /EPI
--- NOTE | 2019-11-29 19:35 | NUR ---
[address] OF [address] MARTINEZ ADMITTED TO ICU FROM ER WITH DX OF AFIB CARZIDEM GT INFUSING AT 10 MG/HR AWAKE AND ALERT. DENIES PAIN NOR DISCOMFORT. CURRENTLY ON BIPAP. WILL CONT TO MONITOR
[2019-11-29] MEDS ORDERED: LIPITOR 20 MG T20 M1 PO (22:50)
[2019-11-29] MEDS ORDERED: TRAZODONE HCL50 MG PO (22:51)
[2019-11-29] MEDS ORDERED: SENOKOT8.6 MG PO (22:52)
[2019-11-29] MEDS ORDERED: OMEPRAZOLE 20 M20 M1 PO (22:53)
[2019-11-29] MEDS ORDERED: JANUMET 50-1,01 EACH (22:55)
[2019-11-29] MEDS ORDERED: TRAMADOL 50 MG50 MG PO (22:57)
[2019-11-29] MEDS ORDERED: HYDROCHLOROTH12.5 M2 PO (22:58)
[2019-11-29] MEDS ORDERED: VITAMIN B-1100 M2 PO (23:00)
[2019-11-30] VITALS (21 sets, daily range): BP systolic 106–155; BP diastolic 42–108
[2019-11-30 04:42] LABS: HEMATOCRIT 30.8 % (37.0-47.0); HEMOGLOBIN 9.5 gm/dL (12.0-15.0); MCH 26.5 pg (26.0-34.0); MCHC 30.8 g/dL (28.0-37.0); MCV 86.2 fL (80.0-100.0); RBC 3.57 mil/uL (4.20-5.00); RDW 18.2 % (10.5-14.5); WBC 6.6 thou/uL (4.0-11.0)
[2019-11-30 05:16] LABS: CALCIUM 9.9 mg/dL (8.5-10.1); CREATININE 1.8 mg/dL (0.6-1.0); POTASSIUM 4.2 mmol/L (3.5-5.1)
--- NOTE | 2019-11-30 06:00 | NUR ---
PT AWAKE AND ALERT A VERY DELIGHTFUL LITTLE LADY. ON NC 5 LITERS O2 SAT 94 TO 96 % BLOOD SUGAR [address] MARTINEZ NOTIFIED 23 UNITS SQ LISPRO GIVEN PER HIGH DOSE SS REMAINS IN AFIB RATE 103 CARDIZEM GTT AT 10 MG WILL CONT TO MONITOR
[2019-11-30] MEDS ORDERED: VITAMIN B-121000 MC2 (10:53)
--- NOTE | 2019-11-30 14:03 | NUR ---
PT BEING TRANSFERRED TO , REPORT CALLED TO RICH. WAITING ON ROOM TO BE CLEANED. PT'S BELONGINGS WITH PT, GLASSES ON, DENTURES IN, PURSE AND CELL PHONE IN PT'S POSSESSION.
--- NOTE | 2019-11-30 14:30 | NUR ---
ASSUMED CARE AT 0700. PT A&OX4, PT REMAINS ON 5L NC. PT'S BLOOD GLUCOSE [address] MARTINEZ ON UNIT AND NOTIFIED. ORDER GIVEN TO FOLLOW HIGH INSULIN SLIDING SCALE PREVIOUSLY ORDERED. PT GIVEN 23 UNITS INSULIN SQ. NEXT ACCUCHECK PT'S BLOOD GLUCOSE 134. SLIDING SCALE ORDERED CALLED FOR 6 UNITS SQ, PT REFUSED THOSE 6 UNITS AT THIS TIME. PT ATE 25% OF LUNCH. PT REMAINS IN AFIB, CONTROLLED RATE OF 67. CARDIZEM GTT OFF PER CARDIOLOGY AND PT STARTED ON PO.
--- NOTE | 2019-11-30 16:18 | NUR ---
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 CM REVIEWED CHART AND SPOKE WITH CARE TEAM. CM MET WITH PT AT BEDSIDE THIS DAY. PT IS A&O X4. CM ROLE INRODUCED. PT INDICATED SHE LIVES IN [facility] IN [place] AND THAT SHE HAS ELEVATOR ACCESS. PT INDICATED SHE HAS A CANE, FWW, AND O2 THROUGH [facility] AT 3L VIA [facility] [employer]EL[employer]. PT INDICATED THAT SHE HAD GONE FOR POST ACUTE CARE STAY AT [facility] IN THE PAST AND THAT SHE HAD GONE HOME AND HAD [facility]. PT INDIATED SHE HOPES TO BE ABLE TO RETURN HOME ONCE MEDICALLY STABLE. CM TO FOLLOW INDICATED WITH DC PLANNING.
[2019-12-01 04:28] VITALS: BP 120/49
--- NOTE | 2019-12-01 04:38 | NUR ---
PATIENT IS PROGRESSING SLOWLY IN HER CARE PLAN. VITAL SIGNS STABLE WITH PATIENT HAVING NO COMPLAINTS OF PAIN OR NAUSEA. FULLY ORIENTED, PATIENT IS ABLE TO CALL APPROPRIATELY FOR NEEDS. BREATHING STABLE EVIDENCED BY ASSESSMENT AND SPOT OXYGENATION CHECKS. UP MULTIPLE TIMES TO BATHROOM WITH ASSISTANCE INCIDENT FREE. PATIENT IS CONSIDERED A HIGH FALL RISK. CONTINUE PLAN OF CARE.
[2019-12-01 05:08] LABS: CALCIUM 9.9 mg/dL (8.5-10.1); CREATININE 1.6 mg/dL (0.6-1.0); POTASSIUM 4.5 mmol/L (3.5-5.1)
[2019-12-01 07:05] VITALS: BP 111/55
[2019-12-01 12:00] VITALS: BP 93/50
--- NOTE | 2019-12-01 16:00 | NUR ---
SW reviewed chart and spoke with nursing. Pt was transferred to 3 from ICU and is slowly progressing towards goals for discharge. Pt is on IV steroids and IV abx. PT ordered to evaluate pt for discharge needs. SW is following to assist as needed with discharge planning.
[2019-12-01 16:30] VITALS: BP 95/54
[2019-12-01 16:48] VITALS: BP 88/42
[2019-12-01 20:31] VITALS: BP 100/38
[2019-12-02] VITALS (7 sets, daily range): BP systolic 92–112; BP diastolic 41–59
[2019-12-02] MEDS ORDERED: TAMIFLU30 MG PO (10:23)
[2019-12-02] MEDS ORDERED: LEVAQUIN 500 M500 M3 PO (10:24)
--- NOTE | 2019-12-02 14:14 | NUR ---
DISCHARGE NOTE: BARBARA reviewed chart and spoke with nursing and attending physician. Pt is medically stable for discharge home today with HH services. BARBARA met with pt at bedside to discuss discharge plan. Pt has used [facility] in the past and would like to use them again. Pt asked about getting smaller portable O2 tanks. Pt is on service with [facility]. BARBARA notified [facility] liaison, who will have an RT contact pt after discharge to assess pt's needs at home. Pt may need smaller portable tanks or a portable concentrator. BARBARA fax[facility]. BARBARA faxed clinical info and discharge orders/summary to [facility]. Notified HH liaison, Anna, or info and discharge orders. Contact info for [facility] and [facility] placed in pt's discharge summary. Pt's dtr will provide transportation home this evening. BARBARA is following to assist as needed with discharge planning.
--- NOTE | 2019-12-02 18:20 | NUR ---
Assumed care approx. 0700 this AM. Pt titrated to 3LNC. Pt moved up to very high SS on insulin. Dr. Jenkins told this RN he will discuss different blood sugar control options with the patient on her next visit to see him. Discharge orders recieved. IV taken out. Tele dc'd. Discharge packet and drug info given to patient. All questions and concerns addressed. 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 Pt left via wheelchair with 3LNC of oxygen with nursing staff at 1820 this evening.
--- NOTE | 2019-12-03 09:00 | NUR ---
SW spoke with Patricia at [facility], who confirms they are able to accept pt on service. HH to contact pt today to arrange HH visit. No additional SW needs identified at this time. Case closed.
--- NOTE | 2019-12-04 11:05 | NUR ---
Late Entry: SW received call from [facility], stating that pt is currently on service with them and they need discharge orders/summary. management planner faxed orders to [facility]. No additional SW needs identified. Case closed.
== END 2019-12-02 18:20 | disposition home health service (06) | DRG 280 ==
LOC: ER 17:13 → EROBS 18:12 → ICU 18:12 → 3W 19:42 → ICU 19:50 → 3W 11-30 14:24
PROVIDERS: Internal Medicine; Nurse Practitioner Family; ADMIT Family Medicine
DX: I11.0 Hypertensive heart disease with heart failure (principal); I21.A1 Myocardial infarction type 2; J96.21 Acute and chronic respiratory failure with hypoxia; D68.59 Other primary thrombophilia; J44.1 Chronic obstructive pulmonary disease with (acute) exacerbation; I50.33 Acute on chronic diastolic (congestive) heart failure; E11.9 Type 2 diabetes mellitus without complications; F17.210 Nicotine dependence, cigarettes, uncomplicated; I48.0 Paroxysmal atrial fibrillation; K21.9 Gastro-esophageal reflux disease without esophagitis; E78.00 Pure hypercholesterolemia, unspecified; E27.9 Disorder of adrenal gland, unspecified; D64.9 Anemia, unspecified; R11.2 Nausea with vomiting, unspecified; Z79.891 Long term (current) use of opiate analgesic; Z99.81 Dependence on supplemental oxygen; Z79.01 Long term (current) use of anticoagulants; Z79.899 Other long term (current) drug therapy
CPT/HCPCS: 10078; 10203; 10879